=== PATIENT | female | born 1925 | race Caucasian/White ===

== ENCOUNTER 2016-11-23 21:01 | Emergency (ER) | payer MEDICARE, BC ==
--- NOTE | 2016-11-23 23:17 | ERNOTE ---
ENT HPI Presenting Symptoms: eye pain Time Seen by Provider: 11/23/16 22:58 Source: patient, family Exam Limitations: no limitations - Immun/Allergies/Home Medications Immunizations: IMMUNIZATION HX Immunizations Up to Date Yes History of Influenza Vaccine Yes Hx Pneumococcal Vaccination Yes Allergies/Adverse Reactions: Allergies Allergy/AdvReac Type Severity Reaction Status Date / Time amoxicillin trihydrate Allergy Unknown Verified 09/12/16 14:04 [From Augmentin] Iodinated Contrast Media - Allergy Unknown Verified 09/12/16 14:02 IV Dye lorazepam Allergy Unknown Verified 09/12/16 14:04 potassium clavulanate Allergy Unknown Verified 09/12/16 14:04 [From Augmentin] tramadol Allergy Unknown Verified 09/12/16 14:04 Home Medications: HOME MEDICATIONS Aspirin [Aspirin EC] 81 mg PO DAILY 10/08/15 [Last Taken Unknown] Calcium Carbonate [Calcium Antacid] 500 mg PO BID 10/08/15 [Last Taken Unknown] Famotidine [Pepcid] 40 mg PO BID 10/08/15 [Last Taken Unknown] Lisinopril [Zestril] 10 mg PO DAILY 10/08/15 [Last Taken Unknown] Furosemide 80 mg PO BID 06/14/16 [Last Taken Unknown] Nitroglycerin 0.4 mg SL PRN PRN 06/14/16 [Last Taken Unknown] Nystatin [Nystop] 1 appl TP TID #60 gm 06/14/16 [Last Taken Unknown] risperiDONE [Risperdal] 1 mg PO TID 06/14/16 [Last Taken Unknown] Bisacodyl [Dulcolax] 5 mg PO DAILY #30 tab 09/12/16 [Last Taken Unknown] Calcium Polycarbophil [Fibercon] 2 tab PO BID #120 tab 09/12/16 [Last Taken Unknown] Docusate Sodium [Colace] 2 cap PO BID #120 cap 09/12/16 [Last Taken Unknown] Magnesium Citrate [Citrate of Magnesia] 1 bottle PO BID #3 bottle 09/12/16 [ Last Taken Unknown] Methimazole [Tapazole] 5 mg PO DAILY 09/12/16 [Last Taken Unknown] Ciprofloxacin HCl [Cipro] 250 mg PO QID 11/23/16 [Last Taken Unknown] Gabapentin 100 mg PO DAILY 11/23/16 [Last Taken Unknown] - History of Present Illness Narrative: Pt woke up this morning with some edema below her eyes. Staff at the [facility] felt like she should have it looked at. Severity: Present: mild ENT Location: Present: eye (R), eye (L) Prearrival Treatment: Present: no prearrival treatment Review of Systems - Review of Systems Constitutional: Present: See HPI. Absent: fever, chills EYE: Present: other - dry eye. Absent: eye pain, eye discharge, vision changes ENT: Present: no symptoms reported Respiratory: Present: no symptoms reported Cardiology: Present: no symptoms reported Gastrointestinal/Abdominal: Present: no symptoms reported Genitourinary: Present: no symptoms reported Musculoskeletal: Present: no symptoms reported Skin: Present: no symptoms reported Neurological: Present: no symptoms reported Endocrine: Present: no symptoms reported Hematologic/Lymphatic: Present: no symptoms reported Psych: Present: no symptoms reported All Other Systems: All systems neg except as marked - Patient's Past Medical History Patient History - Medical: History Unknown, Anxiety, GERD, Other Patient History - Cardiac/Respiratory: Hypertension Patient History - Cancer: No Hx of Cancer Patient History - Surgical Procedures: Cholecystectomy, Hysterectomy, T & A, Other Patient History - Other: None - Social History Living Situations: assisted living Abuse History: No History of abuse Psych History: Hx of Anxiety Smoking Status: Never smoker Alcohol Use: none Drug Use: none - Immunizations Immunizations Up to Date: Yes Hx Pneumococcal Vaccination: Yes History of Influenza Vaccine: Yes Physical Exam - Physical Exam General Appearance: Present: wd/wn, alert, no apparent distress Eye Exam: PERRL: bilateral, EOMI: bilateral, Other: bilateral - mild edema below eyes, no injection or erythema, no drainage Ears, Nose, Throat: Present: normal ENT inspection, hearing decreased - mildly Neck: Present: normal inspection, nontender Respiratory: Present: no respiratory distress, no accessory muscle use Neurological Exam: Present: alert, oriented, normal mood/affect Skin Exam: Present: normal color, warm/dry ED Progress - Vital Signs Vital Signs: Vital Signs 11/23/16 21:10 Temperature 36.3 C L Pulse Rate 80 Respiratory 18 Rate Blood Pressure 154/78 O2 Sat by Pulse 99 Oximetry - Progress/Reassessment Chief Complaint: Eye Injury/Trauma Departure Clinical Impression: Edema eyelid Qualifiers: Laterality: unspecified laterality Qualified Code(s): H02.849 - Edema of unspecified eye, unspecified eyelid - Departure Disposition: Other health care facility Condition: Good Additional Instructions: cool wash cloths on your eyes 3 times a day. use artificial tears 3-4 times a day to keep your eyes moist. follow up with your regular doctor if not improving Referrals: Miles Zamarripa MD [Primary Care Provider] -
--- OUTSIDE RECORDS SUMMARY | 2016-11-23 23:22 | XMS REPORT | Continuity of Care Document ---
:1925 Author Organization [facility] ([facility]) Address [address] [place] [address] Phone [phone] Care Team Providers Name Role Phone Miles Nichols Primary Care Provider [phone] Source Comments This disclosure is being made pursuant to the Care Everywhere program, applicable federal and state laws, and may not contain all informaitonavailable regarding this patient.[facility] ([facility]) Active Allergies and Adverse Reactions Allergen Noted Date Severity Reactions Comments No Known Allergies 07/13/2016 OTHER Current Medications Prescription Sig. Disp. Refills Start Date End Date Status aspirin 81 mg EC tablet take 1 tablet by 09/04/2014 Active oral route every day lisinopril 10 mg tablet take 1 tablet by 07/24/2014 Active oral route every day omeprazole 20 mg enteric take 1 capsule by 07/24/2014 Active coated capsule oral route 2 times every day 30 minutes to 1 hour before a meal famotidine 40 mg tablet 06/23/2016 Active furosemide 80 mg tablet 06/23/2016 Active gabapentin 100 mg capsule 06/23/2016 Active risperiDONE 0.5 mg tablet 07/07/2016 Active nitroglycerin 0.[address] 0.4 mg under Active tablet the tongue every 5 minutes as needed. Maximum of 3 tablets in 15 minutes. magnesium hydroxide (MILK Take 30 mL by mouth Active OF MAGNESIA) 80 mg/mL daily as needed. suspension acetaminophen 325 mg Take 325 mg by Active tablet mouth every 4 hours as needed. Active Problems Not on file Most Recent Encounters Date Type Specialty Providers Description 11/04/2016 [facility] Visit [facility], Chief Comp : Patient DO Reported Reason For Visit 11/04/2016 Office Visit [facility], Chief Comp : Patient DO Reported Reason For Visit Social History Tobacco Use Types Packs/Day Years Used Date Never Assessed Plan of Care Date Type Specialty Providers Description 12/02/2016 Appointment [facility], Chief Comp: Patient DO Reported Reason For [address] [place] [address] [phone] (Fax) Health Maintenance Due Date Last Done Comments Hepatitis B Vaccine (1 of 3 - Primary Series) 1925 Tdap Vaccine 1938 Lipid Disorder Screening 1945 Td Vaccine 1945 Zoster Vaccine 1987 Pneumococcal Vaccine (1 of 2 - PCV13) 1992 Influenza Vaccine: Seasonal (#1) 04/27/2016 Results from Last 3 Months Not on file
[2016-11-23 23:37] VITALS: BP 155/88
== END 2016-11-23 23:30 | disposition short-term general hospital (02) ==
LOC: ER 21:01
DX: H02.849 Edema of unspecified eye, unspecified eyelid (principal); K21.9 Gastro-esophageal reflux disease without esophagitis; F41.9 Anxiety disorder, unspecified; I10 Essential (primary) hypertension